=== PATIENT | female | born 1930 | race Caucasian/White ===

== ENCOUNTER 2016-05-28 18:29 | Emergency (ER) | payer MEDICARE ==
[2016-05-28 19:12] VITALS: TEMP 98.3; BMI 23.7
--- NOTE | 2016-05-28 19:13 | DIRPT ---
CLINICAL DATA: Slipped and fell onto left hand with wrist pain and swelling after fall. EXAM: LEFT WRIST - COMPLETE 3+ VIEW COMPARISON: None. FINDINGS: Comminuted distal radius fracture with intra-articular extension demonstrates apex anterior angulation. No acute fracture of the distal ulna noted although chronic deformity of the ulnar styloid is consistent with remote trauma. Bones are diffusely demineralized. Carpal alignment is intact. Advanced degenerative changes are seen at the first carpometacarpal joint. IMPRESSION: Comminuted fracture the distal radius with intra-articular extension. Electronically Signed By: Rigoberto Arnett M.D. On: 05/28/2016 19:11
[2016-05-28] MEDS ORDERED: BUPIVACAINE 0.25% 30 ML VIAL INF ONE (19:41)
--- NOTE | 2016-05-28 19:50 | EDPRACDOC ---
- General Information Chief Complaint: Wrist Pain Stated Complaint: FELL INJURED LT WRIST/DEFORMITY Time Seen by Provider: 05/28/16 19:37 Information Source: Patient Mode of Arrival: Car Home Medications: Home Medications Apixaban [Eliquis] 5 mg PO BID 03/11/16 Fluticasone/Salmeterol [Advair Hfa 115-21 Mcg Inhaler] 1 inh INH BID 03/11/16 Furosemide [Lasix] 40 mg PO DAILY 03/11/16 Hydrocodone Bit/Acetaminophen [Hydrocodon-Acetaminophen 5-325] 1 - 2 tab PO Q6H PRN 03/11/16 Lisinopril 5 mg PO DAILY 03/11/16 Lorazepam 0.5 - 1 mg PO BID PRN 03/11/16 Potassium Chloride [K-Tab ER] 10 meq PO DAILY 03/11/16 Sertraline HCl [Zoloft] 75 mg PO DAILY 03/11/16 Albuterol/Ipratropium Neb [Duoneb] 3 ml NEB Q6H PRN 05/12/16 Prednisone [Sterapred 5 mg/6 day Uni-Pack] 21 tab PO DIR #1 pack 05/16/16 Hydrocodone Bit/Acetaminophen [Hydrocodon-Acetaminophen 5-325] 1 tab PO Q4H PRN #15 tab 05/28/16 Allergies/Adverse Reactions: Allergies Allergy/AdvReac Type Severity Reaction Status Date / Time codeine Allergy See Verified 05/28/16 19:09 Comments Penicillins Allergy Anaphylaxis Verified 05/28/16 19:09 * Akvvbuo-Yxo-Zme Reductase Allergy See Verified 05/28/16 19:09 Inhibitor Comments - History of Present Illness Onset: today HPI: SLIPPED GOING TO THE BATHROOM BEFORE BED. PAIN SEVERE LEFT WRIST. PT IS RIGHT HANDED. NO OTHER COMPLAINTS. ED Past Medical History - History Reviewed Yes Nurses notes reviewed and agree except as marked - Patient Medical History Neurological History: Reports: Cerebrovascular Accident Cardiac History: Reports: Coronary Artery Disease, Atrial Fibrillation, Hypertension, Pacemaker, Valvular Heart Disease Respiratory History: Reports: Asthma, COPD, Emphysema GI/ History: Reports: Renal Disease, Urinary Tract Infection, Kidney Stones, Gastroesophageal Reflux Musculoskeletal History: Reports: Arthritis, Osteoarthritis Psychological History: Reports: Anxiety. Denies: Depression, Substance Use Disorder Surgical History: Reports: Cholecystectomy, Hysterectomy, Tonsillectomy, Tonsillectomy/Adnoidectomy, Other (Pacemaker, back) - Family Medical History Reports: Diabetes (mother), Cancer (son). Denies: Hypertension, Stroke, Cardiac Disorders - Social Medical History Smoking Status: Never smoker Social History: Denies: Substance Use Disorder EDM Review of Systems - Review of Systems ROS Negative Except as Marked: Yes All systems reviewed and were negative except as marked Gastrointestinal: No Symptoms Reported Genitourinary: No Symptoms Reported Neurological: No Symptoms Reported - Physical Exam Constitutional: Alert (Awake), No apparent distress Oriented to: Time, Person, Place Last recorded Vital Signs: Last Vital Signs Temp 98.3 F 05/28/16 19:10 Pulse 72 05/28/16 19:10 Resp 20 05/28/16 19:10 BP 138/70 05/28/16 19:10 Pulse Ox 88 L 05/28/16 19:10 Oxygen Pulse Oxygen Saturation 88 O2 Device Room Air Oxygen Flow Rate Fraction of Inspired Oxygen ( FIO2) - HEENT Head: Normal ( normocephalic), Other (1 CM HEMATOMA LEFT FOREHEAD) Eye Exam: Normal (PERRL, EOMI, Sclera white) Oropharynx: Normal (Pharynx:Moist without exudate,Gums-no swelling) Nose: No Symptoms Reported (septum midline) Neck: Normal (FROM, trachea at midline) - Respiratory/Cardiovascular Respiratory: Normal - CTA (BBS clear to auscultation without adventitious sounds ) Cardiovascular: Normal (RRR without murmur, gallop or rub) - GI Auscultation: Normal (NABS) Palpation: Normal (Soft,No rebound or guarding, non distended) Tenderness: Non tender Lay's Sign: Negative - Musculoskeletal Back: Normal (Non-Tender) Extremities: Normal (Normal tone, Pulses 2+ No cyanosis or edema, FROM) - Integumentary Skin: Normal, Warm, Dry Lymphatics: Normal (no adenopathy) - Neurologic Memory Impaired: Normal Motor Function: Normal (Normal tone, Pulses 2+ No cyanosis or edema, FROM) Cranial Nerve: Normal (CN II-X11 intact sensation, strength 5/5) Cerebellar: Normal Mood Description: Normal Perception: Normal ED Wrist Problem Exam Wrist Symptoms: Other (LEFT DISTAL FOREARM/WRIST SWELLING, DEFORMITY.) ED Procedures - Splinting 1st splint Location: LEFT WRIST Hand-Made Type: orthoglass Splint: sugar-tong Pre-Proc Neuro Vasc Exam: normal Post-Proc Neuro Vasc Exam: normal Other Devices: Sling - Fracture/Dislocation Reduction Indication: Fracture (LEFT WRIST) Attempted reduction was performed: Yes Nerve Block Performed: was used Post Reduction radiographs showed: Acceptable Alignment - Additional Procedures Progress Note: HEMATOMA BLOCK PERFORMED ON PT. AFTER CLEANING SKIN WITH CHLORHEXADINE, 20 CC OF MARCAINE INJECTED INTO LEFT DISTAL RADIUS HEMATOMA WITH ACCEPTABLE RESULTS. Decision Time to Discharge: 20:49 - Departure Yes I personally saw and evaluated the patient. Disposition: Home Condition: Stable Final Diagnosis: SPLINT BY DIAMOND, REDUCTION BY DIAMOND, HEMATOMA BLOCK BY DIAMOND Fracture of left distal radius Qualifiers: Encounter type: initial encounter Fracture type: closed Fracture morphology: other fracture Qualified Code(s): S52.592A - Other fractures of lower end of left radius, initial encounter for closed fracture Instructions: Wrist Fracture in Adults (ED) Education/Counseling Given To: Patient Education/Counseling Given Regarding: Diagnosis Referrals: Wilmer Rosa MD [Staff Physician] - 1-2 days Prescriptions: Hydrocodone Bit/Acetaminophen [Hydrocodon-Acetaminophen 5-325] 1 tab PO Q4H PRN #15 tab PRN Reason: Pain
[2016-05-28] MEDS ORDERED: HYDROCODONE 5 MG/ACETAMIN 325 MG TAB PO ONE (20:33)
[2016-05-28] MEDS ORDERED: ONDANSETRON HCL 4 MG ODT TAB PO ONE (20:33)
--- NOTE | 2016-05-28 21:15 | DIRPT ---
CLINICAL DATA: Status post reduction of distal radial fracture. EXAM: LEFT WRIST - 2 VIEW COMPARISON: Same day. FINDINGS: The left forearm has been casted and immobilized. Comminuted fracture of the distal radius is again noted with intra-articular extension. Moderately displaced ulnar styloid fracture is noted as well. There is significantly less posterior angulation of fracture components compared to prior exam. IMPRESSION: Significantly decreased posterior angulation of distal radial fracture components status post reduction and casting and immobilization. Electronically Signed By: Ronaldo Guzman Jr, M.D. On: 05/28/2016 21:12
[2016-05-28 21:31] VITALS: BP 140/65; PULSE 72
== END 2016-05-28 21:32 | disposition home or self-care (01) ==
LOC: ED 18:29
DX: S52.592A Other fractures of lower end of left radius, initial encounter for closed fracture (principal); W01.0XXA Fall on same level from slipping, tripping and stumbling without subsequent striking against object, initial encounter; Y93.89 Activity, other specified
CPT/HCPCS: 25605; 73100; 73110; 99284; A9270; J3490; S0020